=== PATIENT | male | born 1950 | race Caucasian/White ===

== ENCOUNTER 2021-10-03 09:18 | Emergency (ER) | payer OTHER, MEDICARE ==
[2021-10-03] MEDS ORDERED: Sodium Chloride 0.9% 10 ML Syringe FLUSH PRN (09:56)
[2021-10-03] MEDS ORDERED: Furosemide 40 MG/4 ML VIAL IVPUSH ONE (10:47)
== END 2021-10-03 15:45 | disposition left against medical advice (07) ==
LOC: JD.ED 09:18
DX: I11.0 Hypertensive heart disease with heart failure (principal); I50.9 Heart failure, unspecified; R79.89 Other specified abnormal findings of blood chemistry; I25.2 Old myocardial infarction; M19.90 Unspecified osteoarthritis, unspecified site; I48.91 Unspecified atrial fibrillation; Z79.01 Long term (current) use of anticoagulants; Z79.899 Other long term (current) drug therapy
CPT/HCPCS: 36415; 71045; 80053; 83880; 84484; 85025; 86140; 93005; 96374; 99285; J1940; 93010; 99284